=== PATIENT | male | born 1985 | race Two or more races ===

== ENCOUNTER 2024-05-15 08:39 | Emergency (ER) | payer OTHER, SELFPAY ==
--- NOTE | ~2024-05-15 | CT_ITS ---
CT ORBIT WITH CONTRAST CLINICAL INFORMATION: Pain with movement of the left eye. Swelling. COMPARISON: None available. TECHNIQUE: A multidetector CT acquisition of the orbits is obtained following the administration of 85 mL of Omnipaque 350 intravenous contrast without complication. This CT examination was performed using dose optimization techniques as appropriate, variously including the following: *Automated exposure control *Adjustment of mA and/or kV according to patient size (this includes techniques or standardized protocols for targeted exams where dose is matched to indication/reason for exam; i.e. extremities or head) *Use of iterative reconstruction technique FINDINGS: Left-sided dacryocystitis: There is a round peripherally enhancing hypodense collection measuring up to 1.3 cm within the medial left canthus that could reflect an infected dacryocystocele or abscess contiguous with the left nasolacrimal duct with adjacent inflammation/left preseptal cellulitis. No post septal cellulitis. The right maxillary sinus is nearly completely opacified and there is mild mucosal thickening within the ethmoid air cells bilaterally and the left maxillary sinus. The mastoid air cells and middle ear cavities are clear. TMJs are unremarkable. There is rightward and leftward deviation of the nasal septum. There are rightward and leftward directed nasal septal spurs. 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 CT/CT orbit BI w IV con IMPRESSION: * Left-sided dacryocystitis and left preseptal cellulitis in the setting of an infected dacryocystocele or abscess contiguous with the left nasolacrimal duct as discussed above. No post septal cellulitis. * Near complete opacification of the right maxillary sinus that can be correlated for clinical signs of acute sinusitis. 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
[2024-05-15 08:47] VITALS: BP 131/90; PULSE 87; RESP 16; TEMP 36.6; O2SAT 97; BMI 35.9
--- NOTE | 2024-05-15 09:09 | PC.NURSE ---
pt a&ox3, c/o lt periorbital swelling 3/10 pain to area. pt states he has blurry vision at baseline/wears glasses and doesnt see a difference vision barros. pt awaiting provider, will continue to monitor
[2024-05-15 10:04] LABS: MANUAL DIFF FLAG NO
--- NOTE | 2024-05-15 10:05 | PC.NURSE ---
IV inserted, labs drawn, pt awaiting CT scan
[2024-05-15 10:06] LABS: Basophils Percent Auto 0.5 % (0-2); Eosinophils Absolute Auto 0.1 X10*3/uL (0.0-0.4); Hematocrit 43.1 % (42.0-52.0); Hemoglobin 14.5 g/dl (14.0-18.0); Imm Gran Abs Auto 0.02 X10*3/uL (0.00-0.03); Imm Gran Pct Auto 0.3 % (0.0-0.4); Lymphocytes Absolute Auto 0.7 X10*3/uL (1.2-4.9); Lymphocytes Percent Auto 11.9 % (20-40); Mean Corpuscular HGB Conc 33.6 g/dl (31.0-36.0); Mean Corpuscular Hemoglobin 28.2 pg (27.0-33.0); Mean Corpuscular Volume 83.7 fL (80.0-98.0); Mean Platelet Volume 9.5 fL (9.4-12.4); Monocytes Absolute Auto 0.6 X10*3/uL (0.1-1.2); Monocytes Percent Auto 10.2 % (2-11); Neutrophils Absolute Auto 4.4 x10*3/uL (2.0-8.3); Neutrophils Percent Auto 75.1 % (45-73); Platelet Count 224 X10*3/uL (160-400); Red Blood Count 5.15 X10*6/uL (4.60-5.80); Red Cell Distribution Width 12.9 % (11.0-16.0); White Blood Count 5.9 X10*3/uL (4.8-10.8)
[2024-05-15 10:23] LABS: Alanine Aminotransferase 108 U/L (0-40); Albumin Level 4.7 g/dL (3.5-5.0); Alkaline Phosphatase 94 U/L (39-117); Anion Gap 14 (12-20); Aspartate Amino Transferase 84 U/L (5-37); Blood Urea Nitrogen 10 mg/dL (9-16); C Reactive Protein 0.63 mg/dL (< or = 0.50); Calcium 9.3 mg/dL (8.4-10.2); Carbon Dioxide 24 mmol/L (22-29); Chloride 105 mmol/L (96-108); Creatinine Clr Calc Pharmacy 172.3; Estimated Glomerular Filt Rate > 60; Glucose Random 136 mg/dL (60-115); Potassium 4.1 mmol/L (3.3-5.1); Sodium 139 mmol/L (135-145); Total Protein 7.7 g/dL (6.5-8.0)
--- NOTE | 2024-05-15 10:24 | ED.EYEPROB ---
HPI - Eye Problem General Chief complaint: Eye Problems Stated complaint: Eye swelling Time Seen by Provider: 05/15/24 09:30 Source: patient and family Mode of arrival: ambulatory Limitations: no limitations History of Present Illness ED Provider: Eva MASSEY HPI Narrative: This is a 39-year-old male history of lupus pernio, sarcoidosis, obesity presenting to the emergency department with left eye swelling, and slight discomfort for the past day worsening. Patient reports he awoke this morning with a swollen left eye with slight discomfort with eye movements. He reports he has sarcoidosis and he is not sure if this is a flare however not his typical flare. He denies recent illness. Denies fevers, chills, chest pain, shortness of breath, nausea, vomiting, cough, headache, vision changes, weakness, recent sick contacts. Related Data Previous Rx's ?Medication ?Instructions ?Recorded amoxicillin 875 mg-potassium 1 tab PO BID 10 days #20 tabs 05/15/24 clavulanate 125 mg tablet erythromycin 5 mg/gram (0.5 %) eye 1 appl ophthalmic (eye) TID 5 days 05/15/24 ointment #3.5 grams prednisone 20 mg tablet 20 mg PO DAILY 5 days #5 tabs 05/15/24 Allergies Allergy/AdvReac Type Severity Reaction Status Date / Time No Known Allergies Allergy Verified 05/15/24 08:47 Review of Systems Review of Systems: Yes all other systems are reviewed and are negative [facility] Past Medical History Attestation statement: The following information was validated with the patient. Source: old records reviewed and nursing notes reviewed Social History Social History Advance Directives: No Do you have a plan to hurt others: No Plan Physical Exam Vital Signs: Vital Signs: Last Vital Signs Temp 98.1 F 05/15/24 14:44 Pulse 86 05/15/24 14:44 Resp 16 05/15/24 14:44 BP 138/88 05/15/24 14:44 Pulse Ox 99 05/15/24 14:44 O2 Del Method Room Air 05/15/24 14:44 BMI result Body Mass Index 35.9 vss Appearance: Alert.? Oriented X3.? No acute distress.? Head: Normocephalic, atraumatic, no step-offs or deformities Eyes: Pupils equal, round and reactive to light.? + slight discomfort w/ eye movement on the left. normal EOM on right. Left periorbital region with slight errythema and swelling particularly lower eye lid w/o a/c abscess. Normal upper lid on the left. normal right eye. ENT: Pharynx normal.? Neck: Normal inspection.? Neck supple.? CVS: Normal heart rate and rhythm.? Pulses normal.? Respiratory: No respiratory distress.? Breath sounds normal.? Abdomen: Soft and nontender.? Skin: Skin warm and dry.? Normal skin color.? Normal skin turgor.? Extremities: No lower extremity edema.? No calf ttp. 5/5 strength to bilateral upper and lower extremities Neuro: Oriented X 3.? No motor deficit.? No sensory deficit. CN 2-12 intact Course Reevaluation(s) Reevaluation #1: CBC unremarkable. Chemistry no acute findings requiring intervention slightly elevated transaminases likely secondary to alcohol. CRP mildly elevated likely secondary to preseptal cellulitis. CT of bilateral orbits with left-sided dacryocystitis and left preseptal cellulitis. I do not suspect abscess. No postseptal cellulitis. Near complete opacification of the right maxillary sinus 2nd be correlated with clinical signs of acute sinusitis. 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 Time: 12:32 Reevaluation #2: Spoke to Dr. Patterson at the [facility] who recommends outpatient follow-up for the aneurysm at the neuro endo vascular clinic at [facility] patient may require angiogram. Will provide patient with information in regards to this clinic. I also this is a biology patient can follow up with them about the dacryocystitis and periorbital cellulitis however they will not follow the aneurysm. Time: 14:27 Reevaluation #3: Neuro endovascular provider called obtained patient's information, they will call patient to schedule an appointment. Time: 15:45 Medications Administered Discontinued Medications Generic Name Dose Route Start Last Admin Trade Name Freq PRN Reason Stop Dose Admin Iohexol 85 ml 05/15/24 10:34 05/15/24 10:34 Iohexol 350 Mg/Ml 75 Ml Infus..Btl IV 05/15/24 10:35 85 ml ONCE ONE Administration Medical Decision Making Medical Decision Making [facility] Narrative: 39-year-old male presents with swelling to left eye x1 day Physical exam Pupils equal, round and reactive to light.? + slight discomfort w/ eye movement on the left. normal EOM on right. Left periorbital region with slight errythema and swelling particularly lower eye lid w/o a/c abscess. Normal upper lid on the left. normal right eye. History and physical exam concerning for conjunctivitis versus periorbital cellulitis w/ dacrocystitis . Unlikely orbital cellulitis. Unlikely optic nerve injury, acute closed angle glaucoma, wet macular degeneration. No associated trauma. Plan labs, imaging to rule out orbital cellulitis as he does express slight discomfort with left extraocular movements Differential Diagnosis Differential Diagnoses: The differential diagnosis associated with the presentation includes History and physical exam concerning for conjunctivitis versus periorbital cellulitis w/ dacrocystitis . Unlikely orbital cellulitis. Unlikely optic nerve injury, acute closed angle glaucoma, wet macular degeneration. No associated trauma. Admission/Observation Consideration of admission/observation: Escalation of care including admission/observation considered Possible Lab Data [facility] Lab Attestation statement: I reviewed the patient's lab results. 05/15/24 10:00 05/15/24 10:00 Labs: Lab Results 05/15/24 Range/Units 10:00 WBC 5.9 (4.8-10.8) X10*3/uL RBC 5.15 (4.60-5.80) X10*6/uL Hgb 14.5 (14.0-18.0) g/dl Hct 43.1 (42.0-52.0) % MCV 83.7 (80.0-98.0) fL MCH 28.2 (27.0-33.0) pg MCHC 33.6 (31.0-36.0) g/dl RDW 12.9 (11.0-16.0) % Plt Count 224 (160-400) X10*3/uL MPV 9.5 (9.4-12.4) fL Immature Gran % (Auto) 0.3 (0.0-0.4) % Neut % (Auto) 75.1 H (45-73) % Lymph % (Auto) 11.9 L (20-40) % Hale % (Auto) 10.2 (2-11) % Eos % (Auto) 2.0 (0-4) % Baso % (Auto) 0.5 (0-2) % Lymph # (Auto) 0.7 L (1.2-4.9) X10*3/uL Hale # (Auto) 0.6 (0.1-1.2) X10*3/uL Eos # (Auto) 0.1 (0.0-0.4) X10*3/uL Baso # (Auto) 0.0 (0.0-0.2) X10*3/uL Abs Immat Gran (auto) 0.02 (0.00-0.03) X10*3/uL Absolute Neuts (auto) 4.4 (2.0-8.3) x10*3/uL Absolute Nucleated RBC 0.000 (0.0-0.012) X10*3/uL Nucleated RBC % (auto) 0.0 (0.0-0.2) /100WBC ESR 9 (0-15) MM/HR Sodium 139 (135-145) mmol/L Potassium 4.1 (3.3-5.1) mmol/L Chloride 105 (96-108) mmol/L Carbon Dioxide 24 (22-29) mmol/L Anion Gap 14 (12-20) BUN 10 (9-16) mg/dL Creatinine 0.74 (0.5-1.4) mg/dL Estim Creat Clear Calc 172.3 Estimated GFR > 60 Random Glucose 136 H (60-115) mg/dL Calcium 9.3 (8.4-10.2) mg/dL Total Bilirubin 1.0 (0.0-1.0) mg/dL AST 84 H (5-37) U/L ALT 108 H (0-40) U/L Alkaline Phosphatase 94 (39-117) U/L C-Reactive Protein 0.63 H (< or = 0.50) mg/dL Total Protein 7.7 (6.5-8.0) g/dL Albumin 4.7 (3.5-5.0) g/dL Independent Interpretation I performed an independent interpretation of an: CT Scan (CT/CT orbit BI w IV con IMPRESSION: * Left-sided dacryocystitis and left preseptal cellulitis in the setting of an infected dacryocystocele or abscess contiguous with the left nasolacrimal duct as discussed above. No post septal cellulitis. * Near complete opacification of the right maxillary ) Radiology Impression Discussion of test interpretation with radiology: I have reviewed the radiologist's reading. Chronic Conditions Patient?s care impacted by: Other (Sarcoidosis, lupus pernio, obesity) Critical Care Time Critical Care Time Critical Care Time: Yes Total Critical Care Time: 35 Attestation: I attest to this time spent taking care of the patient, obtaining history, physical, reviewing labs, imaging, speaking to my attending, specialist or hospitalist. Discharge Plan Discharge Clinical Impression: Bacterial conjunctivitis, Cellulitis, periorbital Patient Disposition: Home, Self-Care Instructions: Cellulitis (ED), Conjunctivitis (ED) Additional Instructions: Take your medications as prescribed. If you were prescribed antibiotics today, it is important that you take your medication to their entirety, do not skip any doses, do not finish them early. Follow-up with your primary care provider this week. Return to the emergency department with new or worsening symptoms. Such as fevers, chills, chest pain, shortness of breath, nausea, vomiting, dizziness, headache, vision changes, lethargy In case of emergency call 911 [facility] [address] , [place], [place] [id number] CT/CT orbit BI w IV con IMPRESSION: * Left-sided dacryocystitis and left preseptal cellulitis in the setting of an infected dacryocystocele or abscess contiguous with the left nasolacrimal duct as discussed above. No post septal cellulitis. * Near complete opacification of the right maxillary sinus that can be correlated for clinical signs of acute sinusitis. 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 Prescriptions: New amoxicillin-pot clavulanate 875-125 mg tablet 1 tab PO BID 10 Days Qty: 20 0RF erythromycin 5 mg/gram (0.5 %) ointment 1 appl ophthalmic (eye) TID 5 Days Qty: 3.5 0RF prednisone 20 mg tablet 20 mg PO DAILY 5 Days Qty: 5 0RF Referrals: Gino Saunders [Physician] - 1 day Rawla,Bobby, [employer] [Primary Care Provider] - 2 days Interventions: ED Discharge Assessment Last Done: 05/15/24 14:44 Discharge Date/Time: 05/15/24 14:45 Print Language: Gabonese
[2024-05-15] MEDS: iohexoL 350 MG/ML 75 ML INFUS..BTL 85 ML IV (10:34)
[2024-05-15 10:53] LABS: Erythrocyte Sedimentation Rate 9 MM/HR (0-15)
[2024-05-15 11:54] VITALS: BP 140/85; PULSE 82; RESP 14; O2SAT 99
[2024-05-15 14:44] VITALS: BP 138/88; PULSE 86; RESP 16; TEMP 36.7; O2SAT 99
== END 2024-05-15 14:45 | disposition home or self-care (01) ==
PROVIDERS: Physician Assistant; Emergency Provider Emergency Medicine; PCP Registered Nurse
DX: H10.12 Acute atopic conjunctivitis, left eye (principal); L03.213 Periorbital cellulitis; Z79.899 Other long term (current) drug therapy
CPT/HCPCS: 36415; 70481; 80053; 85025; 85652; 86140; 99283; 99284; Q9967